=== PATIENT | male | born 2000 | race Caucasian/White ===

== ENCOUNTER → 2021-08-06 | Emergency (ER) | payer BC ==
[~2021-08-06] VITALS: Ht 188 cm; Wt 113.6 kg
[~2021-08-06] MED LIST: DICY20TA2 PO; NO HOME MEDS; ONDA8TAB9 PO
[2021-08-06 11:49] VITALS: BP 129/69
== END | disposition home or self-care (01) ==
LOC: ER 11:36
DX: F41.0 Panic disorder [episodic paroxysmal anxiety] (principal); R07.9 Chest pain, unspecified; R25.1 Tremor, unspecified; Z79.899 Other long term (current) drug therapy
CPT/HCPCS: 99281